=== PATIENT | female | born 1940 | race American Indian/Alaskan Native ===

== ENCOUNTER 2017-04-18 16:34 | Emergency (ER) | payer MEDICAID, OTHER ==
[2017-04-18 16:42] VITALS: BMI 24.5
--- NOTE | 2017-04-18 16:54 | ED PDOC ---
Arrival/HPI - General Chief Complaint: Chest Pain Time Seen by Provider: 04/18/17 16:49 Historian: Patient - History of Present Illness Narrative History of Present Illness (Text): 04/18/17 16:50 Zo Fritz is a 76 year old female who presents to the emergency department complaining of right sided chest, back, and neck pain since this morning. Patient notes that she has experienced a runny nose and sneezing for a few days. Patient denies any cough, dyspnea, fever, chills, trauma, traveler exposure, nausea, vomiting, diarrhea, diaphoresis, dizziness, or any other complaints at this time. Symptom Onset: Gradual Symptom Course: Unchanged Severity Level: Mild Context: Home Associated Symptoms (Text): 04/18/17 17:02 Patient daughter and granddaughter report right sided chest up her back and neck pain since this morning. She has had some sneezing and a runny nose for several days. No trauma. No cough. No dyspnea. No diaphoresis. No nausea or vomiting. No rash. She has never experienced this previously. Past Medical History - Provider Review Nursing Documentation Reviewed: Yes - Infectious Disease Hx of Infectious Diseases: None - Cardiac Hx Pacemaker: No - Pulmonary Hx Respiratory Disorders: No - Neurological Hx Paralysis: No - HEENT Hx Cataracts: Yes - Renal Hx Renal Disorder: No - Endocrine/Metabolic Hx Endocrine Disorders: No - Hematological/Oncological Hx Blood Transfusions: No Hx Blood Transfusion Reaction: No - Integumentary Hx Dermatological Disorder: No - Musculoskeletal/Rheumatological Hx Musculoskeletal Disorders: No - Gastrointestinal Hx Constipation: Yes - Genitourinary/Gynecological Hx Genitourinary Disorders: No - Psychiatric Hx Emotional Abuse: No Hx Physical Abuse: No Hx Substance Use: No - Surgical History Hx Joint Replacement: Yes (2012 right knee replacement) Other/Comment: tumor removed from ovary 1972 - Anesthesia Hx Anesthesia: Yes Hx Anesthesia Reactions: No Hx Malignant Hyperthermia: No - Suicidal Assessment Feels Threatened In Home Enviroment: No Family/Social History - Physician Review Nursing Documentation Reviewed: Yes Family/Social History: No Known Family HX Smoking Status: Never Smoked Hx Alcohol Use: No Hx Substance Use: No Hx Substance Use Treatment: No Allergies/Home Meds Allergies/Adverse Reactions: Allergies iodine Allergy (Severe, Verified 04/18/16 08:40) "I PASSED OUT" Home Medications: Home Meds Medication Instructions Recorded Confirmed Alprazolam 0.5 mg PO TID PRN 06/05/15 04/18/17 Aspirin/Dipyridamole [Aggrenox 1 ea PO BID 06/05/15 04/18/17 25-200 mg] Hydrochlorothiazide [HCTZ] 25 mg PO DAILY 06/05/15 04/18/17 Metoprolol Tartrate [Lopressor] 50 mg PO BID 06/05/15 04/18/17 Omeprazole 20 mg PO DAILY 06/05/15 04/18/17 Simvastatin 10 mg PO DAILY 06/05/15 04/18/17 Valsartan [Diovan] 160 mg PO BID 06/05/15 04/18/17 cloNIDine 0.3 mg/24 hr 1 patch TD SUN 06/05/15 04/18/17 [catapres-TTS3 0.3 mg/24 hr] Acetaminophen/Butalbital/Caf 1 tab PO TID PRN 04/18/16 04/18/17 [Fioricet] Review of Systems - Physician Review All systems were reviewed & negative as marked: Yes - Review of Systems Constitutional: absent: Fatigue, Fevers, Night Sweats Eyes: absent: Vision Changes ENT: Rhinorrhea. absent: Hearing Changes Respiratory: absent: SOB, Cough, Sputum, Wheezing Cardiovascular: Chest Pain. absent: Palpitations, Syncope Gastrointestinal: absent: Abdominal Pain, Nausea, Vomiting Genitourinary Female: absent: Dysuria Musculoskeletal: Back Pain, Neck Pain Skin: absent: Rash, Pruritis Neurological: absent: Headache, Dizziness, Focal Weakness, Gait Changes Endocrine: absent: Diaphoresis Hemo/Lymphatic: absent: Adenopathy Psychiatric: absent: Anxiety, Depression Physical Exam Vital Signs Reviewed: Yes Vital Signs Pulse Resp BP Pulse Ox 04/18/17 21:17 69 17 135/63 100 04/18/17 18:48 69 20 148/74 100 04/18/17 16:49 76 18 135/70 100 Blood Pressure: Normal Pulse: Regular Respiratory Rate: Normal Appearance: Positive for: Well-Appearing, Non-Toxic, Uncomfortable Pain Distress: Mild Mental Status: Positive for: Alert and Oriented X 3 - Systems Exam Head: Present: Atraumatic, Normocephalic Pupils: Present: PERRL Extroacular Muscles: Present: EOMI Conjunctiva: Present: Normal Mouth: Present: Moist Mucous Membranes Pharnyx: No: ERYTHEMA, EXUDATE, TONSILS ENLARGED Neck: Present: Normal Range of Motion. No: Meningeal Signs, MIDLINE TENDERNESS , Paraspinal Tenderness Respiratory/Chest: Present: Clear to Auscultation, Decreased Breath Sounds, Tender to Palpation (to right-sided chest). No: Respiratory Distress, Accessory Muscle Use, Wheezes, Rales, Retracting, Rhonchi, Tachypneic Cardiovascular: Present: Regular Rate and Rhythm, Normal S1, S2. No: Murmurs Abdomen: Present: Normal Bowel Sounds. No: Tenderness, Distention, Peritoneal Signs, Rebound, Guarding Back: Present: Normal Inspection. No: CVA Tenderness, Midline Tenderness, Paraspinal Tenderness Upper Extremity: Present: Normal Inspection. No: Cyanosis, Edema Lower Extremity: Present: Normal Inspection. No: Edema Neurological: Present: GCS=15, CN II-XII Intact, Speech Normal, Motor Func Grossly Intact Skin: Present: Warm, Dry, Normal Color. No: Rashes Psychiatric: Present: Alert, Oriented x 3, Normal Insight, Normal Concentration Medical Decision Making ED Course and Treatment: 04/18/17 16:56 Impression: 76 year old female who presents to the emergency department complaining of right sided chest, back, and neck pain since this morning. Plan: -- EKG -- Chest X-ray -- Labs -- Toradol -- Reassess and disposition Prior Visits: Notes and results from previous visits were reviewed. Patient was last seen in emergency department on 04/18/16 for accidentally had a sipping Clorox when taking her medication. Patient was discharged home. Progress Notes: 04/18/17 17:04 EKG shows normal sinus rhythm rate approximately 80 with Q waves inferiorly and poor R-wave progression and no acute ST or T-wave changes 04/18/17 18:55 Patient's dimer is elevated. A CTA has been ordered. She will be premedicated with Benadryl IV prior to IV contrast as she has an allergy to fish. 04/18/17 21:29 CT chest as read by the radiologist shows pulmonary nodules for which follow-up in 12 months was recommended. Follow-up with PMD. Follow-up in the ER as needed. No pulmonary embolus. 04/18/17 21:29 Patient's pain has improved. - Lab Interpretations Lab Results: 04/18/17 17:00 04/18/17 17:00 Lab Results 04/18/17 17:00: Sodium 138, Potassium 4.5, Chloride 102, Carbon Dioxide 24, Anion Gap 17, BUN 13, Creatinine 1.1, Est GFR ( Amer) 59, Est GFR (Non- Af Amer) 49, Random Glucose 81, Calcium 9.9, Total Bilirubin 0.3, AST 36, ALT 32 , Alkaline Phosphatase 137 H, Lactate Dehydrogenase 511, Total Creatine Kinase 470 H, CK-MB (CK-2) 0.4, CK-MB (CK-2) % Cancelled, Troponin I < 0.01, NT-Pro-B Natriuret Pep 207, Total Protein 8.2, Albumin 4.2, Globulin 4.1, Albumin/ Globulin Ratio 1.0 L 04/18/17 17:00: PT 11.7, INR 1.03, APTT 25.9, D-Dimer, Quantitative 380 H 04/18/17 17:00: WBC 5.5, RBC 3.90, Hgb 10.8 L, Hct 32.8 L, MCV 84.1, MCH 27.7, MCHC 32.9, RDW 14.3, Plt Count 171, MPV 9.5, Gran % 43.5 L, Lymph % (Auto) 43.8 H, [place] % (Auto) 8.5 H, Eos % (Auto) 3.8, Baso % (Auto) 0.4, Gran # 2.40, Lymph # 2.4, [place] # 0.5, Eos # 0.2, Baso # 0.02 I have reviewed the lab results: Yes - RAD Interpretation Radiology Orders: 04/18/17 16:50 CHEST PORTABLE [RAD] Stat 04/18/17 18:08 ANGIO CHEST PE PROTOCOL [CT] Stat Chest 1 view shows no infiltrate effusion or cardiomegaly Drapery Seamstress: ED Physician - Medication Orders Current Medication Orders: Discontinued Medications Diphenhydramine HCl (Benadryl) 50 mg IVP ONCE ONE Stop: 04/18/17 18:56 Last Admin: 04/18/17 19:13 Dose: 50 mg IVP Administration Document 04/18/17 19:13 [facility] (Rec: 04/18/17 19:13 [facility]-[id number]) Charges for Administration # of IVP Administrations 1 Ketorolac Tromethamine (Toradol) 15 mg IVP STAT STA Stop: 04/18/17 16:51 Last Admin: 04/18/17 17:09 Dose: 15 mg MAR Pain Assessment Document 04/18/17 17:09 [facility] (Rec: 04/18/17 17:09 [facility]-[id number]) Pain Reassessment Is this a pain reassessment? Yes IVP Administration Document 04/18/17 17:09 [facility] (Rec: 04/18/17 17:09 [id number] Charges for Administration # of IVP Administrations 1 Re-Assess: MAR Pain Assessment Document 04/18/17 18:09 [facility] (Rec: 04/18/17 18:44 [id number] Pain Reassessment Is this a pain reassessment? Yes Sleep Is patient sleeping during reassessment? No Presence of Pain Presence of Pain No - Scribe Statement The provider has reviewed the documentation as recorded by the Brody Woodard Provider Scribe Attestation: All medical record entries made by the Scribe were at my direction and personally dictated by me. I have reviewed the chart and agree that the record accurately reflects my personal performance of the history, physical exam, medical decision making, and the department course for this patient. I have also personally directed, reviewed, and agree with the discharge instructions and disposition. Disposition/Present on Arrival - Present on Arrival Any Indicators Present on Arrival: No History of DVT/PE: No History of Uncontrolled Diabetes: No Urinary Catheter: No History of Decub. Ulcer: No History Surgical Site Infection Following: None - Disposition Have Diagnosis and Disposition been Completed?: Yes Diagnosis: Anemia, Chest pain, Pleurisy Disposition: HOME/ ROUTINE Disposition Time: 21:30 Patient Plan: Discharge Condition: IMPROVED Discharge Instructions (ExitCare): Chest Pain (ED), Anemia (ED), Pleurisy (ED) Additional Instructions: Follow-up with PMD. follow-up in ER as needed. Prescriptions: Tramadol HCl [Ultram] 50 mg PO Q6 PRN #10 tab PRN Reason: Pain Referrals: Lola Singh MD [Primary Care Provider] - Follow up with primary Forms: [employer] (Divehi)
[2017-04-18 17:40] LABS: B-TYPE NATRIURETIC PEPTIDE 207 pg/mL (0-450); INR 1.03 (0.93-1.08); PARTIAL THROMBOPLASTIN TIME 25.9 Seconds (25.1-36.5); PROTHROMBIN TIME 11.7 SECONDS (9.4-12.5); TROPONIN I < 0.01 ng/mL
[2017-04-18 17:44] LABS: ALBUMIN 4.2 g/dL (3.0-4.8); ALT/SGPT 32 U/L (7-56); AST/SGOT 36 U/L (14-36); BASO # 0.02 K/mm3 (0.0-2.0); BASO % 0.4 % (0.0-3.0); BLOOD UREA NITROGEN 13 mg/dL (7-21); CALCIUM 9.9 mg/dL (8.4-10.5); EOS # 0.2 (0.0-0.7); EOS % 3.8 % (1.5-5.0); GFR AFRICAN-AMERICAN 59; GFR NON-AFRICAN AMERICAN 49; GRAN # 2.4 (1.4-6.5); GRAN % 43.5 % (50.0-68.0); HEMOGLOBIN 10.8 g/dL (12.0-16.0); LYMPH # 2.4 (1.2-3.4); LYMPH % 43.8 % (22.0-35.0); MEAN CELL VOLUME 84.1 fl (80.0-105.0); MEAN CORPUSCULAR HEMOGLOBIN 27.7 pg (25.0-35.0); MEAN CORPUSCULAR HGB CONC 32.9 g/dl (31.0-37.0); MEAN PLATELET VOLUME 9.5 fl (7.0-11.0); MONO # 0.5 (0.1-0.6); MONO % 8.5 % (1.0-6.0); RBC 3.9 10^6/uL (3.5-6.1); RED CELL DISTRIBUTION WIDTH 14.3 % (11.5-14.5); WHITE BLOOD COUNT 5.5 10^3/ul (4.5-11.0)
[2017-04-18 18:05] LABS: CK-MB 0.4 ng/mL (0.0-3.6)
[2017-04-18] MEDS ORDERED: Iohexol 350 MG/100 ML VIAL ONE (18:24)
[2017-04-18 18:49] VITALS: PULSE 69
[2017-04-18] MEDS ORDERED: DiphenhydrAMINE 50 mg/ml Inj IVP ONE (18:55)
--- NOTE | 2017-04-18 19:27 | CARD ---
APPROVED REPORT EKG Measurement Heart [id number] <Conclusion> Normal sinus rhythm Possible Left atrial enlargement Left axis deviation Left ventricular hypertrophy Prolonged QT Abnormal ECG
[2017-04-18 21:18] VITALS: BP 135/63; RESP 17
--- NOTE | 2017-04-18 21:20 | CT ---
EXAM: CT Angiography Chest With Intravenous Contrast EXAM DATE/TIME: 04/18/2017 6:08 PM CLINICAL HISTORY: 76 years old, female; Abnormal findings; Abnormal diagnostic tests; Elevated d-dimer; Additional info: Elevated dimer TECHNIQUE: Axial computed tomographic angiography images of the chest with intravenous contrast using pulmonary embolism protocol. All CT scans at this facility use one or more dose reduction techniques, viz.: automated exposure control; ma/kV adjustment per patient size (including targeted exams where dose is matched to indication; i.e. head); or iterative reconstruction technique. MIP reconstructed images were created and reviewed. Coronal and sagittal reformatted images were created and reviewed. CONTRAST: 100 mL of OMNI administered intravenously. COMPARISON: DX - CHEST PORTABLE 2017-04-18 18:10 FINDINGS: Artifacts: Motion artifact degrades image quality. Heart, aorta and Pulmonary arteries: Heart size is normal. There are coronary artery calcifications. Aorta is normal in caliber.There are vascular calcifications. There are no central pulmonary emboli. Motion and bolus timing limits evaluation of peripheral vessels. There are no large peripheral pulmonary emboli. Lungs and pleural spaces: Trachea and main bronchi are patent.There is no pneumothorax. There is no focal consolidation. There is a 5.7 mm right perihilar nodule, image 71 series 2. There is a 3.8 mm right lower lobe nodule, image 41 series 4 There is a 4.3 mm left upper lobe nodule, image 72 series 2. There is a 2.6 mm lingular nodule, image 141 series 2. There is a 4.2 mm pleural-based left upper lobe nodule, image 125 series 2 There is atelectasis and scarring at the lung bases. There are no effusions. Mediastinum: The esophagus is unremarkable. There are no pathologically enlarged mediastinal nodes. There are shotty hilar nodes. Thyroid: Thyroid is not optimally demonstrated. Bones/joints: Bony structures are osteopenic with degenerative change. Soft tissues: unremarkable Upper abdomen: There are no acute abnormalities in the visualized portion of the abdomen. There is a 7.3 mm low-attenuation right adrenal nodule IMPRESSION: Slightly limited by bolus timing and patient motion, no pulmonary embolus; atherosclerotic disease with coronary artery calcification; multiple small indeterminate pulmonary nodules Additional nonemergent findings as described above. For low-risk patients, no follow-up is necessary. For high-risk patients (smoking history or other known risk factors) an optional chest CT at 12 months could be performed.
[2017-04-18 21:45] VITALS: TEMP 98; O2SAT 98
--- NOTE | 2017-04-19 13:55 | RAD ---
HISTORY: cp COMPARISON: 04/18/2016 FINDINGS: LUNGS: No active pulmonary disease. PLEURA: No significant pleural effusion identified, no pneumothorax apparent. CARDIOVASCULAR: Normal. OSSEOUS STRUCTURES: No significant abnormalities. VISUALIZED UPPER ABDOMEN: Normal. OTHER FINDINGS: None. IMPRESSION: No active disease.
== END 2017-04-18 21:58 | disposition home or self-care (01) ==
LOC: ED 16:34
DX: D64.9 Anemia, unspecified (principal); R09.1 Pleurisy; R07.9 Chest pain, unspecified; Z96.651 Presence of right artificial knee joint
CPT/HCPCS: 71045; 71275; 80053; 82550; 82553; 83615; 83880; 84484; 85025; 85378; 85610; 85730; 93005; 96374; 96375; 99284; J1200; J1885; Q9967

== ENCOUNTER 2017-08-11 14:57 | Emergency (ER) | payer MEDICAID, OTHER ==
[2017-08-11 15:39] VITALS: TEMP 97.6; BMI 24.7
[2017-08-11] MEDS ORDERED: Oxycodone/Acetaminophen 2.5/325 mg Tab PO STA (15:39)
--- NOTE | 2017-08-11 15:43 | ED PDOC ---
Arrival/HPI - General Chief Complaint: Trauma Time Seen by Provider: 08/11/17 15:04 Historian: Patient - History of Present Illness Narrative History of Present Illness (Text): 08/11/17 15:47 A 77 year old female, whose past medical history includes hypertension, peripheral vascular disease, CVA, and TIA , presents to the emergency department complaining of right-side maxillary rib pain (to 3rd and 4th rib). Patient reports yesterday she fell out of bed after turning the wrong direction and hit her right ribs onto a tin trashcan. Patient denies any LOC, head trauma , other injuries, or any other complaints. Also, patient mentions she drove to ER alone. PMD: Dr. Lola Sinhg Past Medical History - Provider Review Nursing Documentation Reviewed: Yes - Infectious Disease Hx of Infectious Diseases: None - Cardiac Hx Cardiac Disorders: Yes Hx Hypertension: Yes Hx Peripheral Vascular Disease: Yes - Pulmonary Hx Respiratory Disorders: No - Neurological Hx Neurological Disorder: Yes (left sided weakness) HX Cerebrovascular Accident: Yes ( 2004 2006 2010 2011) Hx Transient Ischemic Attacks (TIA): Yes - HEENT Hx HEENT Disorder: Yes Hx Cataracts: Yes - Renal Hx Renal Disorder: No - Endocrine/Metabolic Hx Endocrine Disorders: No - Hematological/Oncological Hx Blood Disorders: Yes Hx Anemia: Yes Hx Blood Transfusions: Yes Hx Blood Transfusion Reaction: No - Integumentary Hx Dermatological Disorder: No - Musculoskeletal/Rheumatological Hx Musculoskeletal Disorders: Yes Hx Back Pain: Yes Hx Osteoarthritis: Yes - Gastrointestinal Hx Gastrointestinal Disorders: No - Genitourinary/Gynecological Hx Genitourinary Disorders: Yes (hx removal ovarian mass) Hx Hematuria: Yes Hx Urinary Tract Infection: Yes - Psychiatric Hx Psychophysiologic Disorder: Yes Hx Anxiety: Yes Hx Depression: No Hx Hallucinations: No Hx Substance Use: No - Surgical History Hx Joint Replacement: Yes (2012 right knee replacement) Other/Comment: 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 - Anesthesia Hx Anesthesia: Yes Hx Anesthesia Reactions: No Hx Malignant Hyperthermia: No - Suicidal Assessment Feels Threatened In Home Enviroment: No Family/Social History - Physician Review Nursing Documentation Reviewed: Yes Family/Social History: No Known Family HX Smoking Status: Never Smoked Hx Alcohol Use: No Hx Substance Use: No Hx Substance Use Treatment: No Allergies/Home Meds Allergies/Adverse Reactions: Allergies iodine Allergy (Severe, Verified 08/11/17 15:31) "I PASSED OUT" Home Medications: Home Meds Medication Instructions Recorded Confirmed Alprazolam 0.5 mg PO TID PRN 06/05/15 08/11/17 Aspirin/Dipyridamole [Aggrenox 1 ea PO BID 06/05/15 08/11/17 25-200 mg] Hydrochlorothiazide [HCTZ] 25 mg PO DAILY 06/05/15 08/11/17 Metoprolol Tartrate [Lopressor] 50 mg PO BID 06/05/15 08/11/17 Omeprazole 20 mg PO DAILY 06/05/15 08/11/17 Simvastatin 10 mg PO DAILY 06/05/15 08/11/17 Valsartan [Diovan] 160 mg PO BID 06/05/15 08/11/17 cloNIDine 0.3 mg/24 hr 1 patch TD SUN 06/05/15 08/11/17 [catapres-TTS3 0.3 mg/24 hr] Nitrofurantoin Macrocrystals 100 mg PO BID 05/06/17 08/11/17 [Macrobid] Review of Systems - Physician Review All systems were reviewed & negative as marked: Yes - Review of Systems Constitutional: absent: Other (no head trauma) Musculoskeletal: Other (right maxillary rib pain (3rd and 4th ribs)) Neurological: absent: Other (no LOC) Physical Exam Vital Signs Temp Pulse Resp BP Pulse Ox 08/11/17 15:32 74 17 129/68 100 08/11/17 15:31 97.6 F 72 20 129/68 100 Temperature: Afebrile Blood Pressure: Normal Pulse: Regular Respiratory Rate: Normal Appearance: Positive for: Well-Appearing, Non-Toxic, Comfortable Pain Distress: None Mental Status: Positive for: Alert and Oriented X 3 - Systems Exam Head: Present: Atraumatic, Normocephalic Pupils: Present: PERRL Extroacular Muscles: Present: EOMI Conjunctiva: Present: Normal Neck: Present: Normal Range of Motion Respiratory/Chest: Present: Clear to Auscultation, Good Air Exchange. No: Respiratory Distress, Accessory Muscle Use Cardiovascular: Present: Regular Rate and Rhythm, Normal S1, S2. No: Murmurs Abdomen: Present: Tenderness (tenderness to right-side ribs maxillary area (3rd and 4th ribs)) Back: Present: Normal Inspection Upper Extremity: Present: Normal Inspection. No: Cyanosis, Edema Lower Extremity: Present: Normal Inspection. No: Edema Neurological: Present: GCS=15, CN II-XII Intact, Speech Normal Skin: Present: Warm, Dry, Normal Color. No: Rashes Psychiatric: Present: Alert, Oriented x 3, Normal Insight, Normal Concentration Medical Decision Making ED Course and Treatment: 08/11/17 15:48 Impression: 77 year old female with right-side rib pain. Physical exam shows tenderness to right-side ribs maxillary region (3rd and 4th ribs); otherwise no other acute findings on examination. Plan: -- Chest CT -- Chest X-ray -- Tylenol -- Percocet -- Zofran -- Reassess and disposition Progress Notes: EKG: Ordered, reviewed, and independently interpreted the EKG. Rate : 66 BPM Rhythm : NSR Interpretation : LVH. Comparison : No previous EKG for comparison. 08/11/2017 16:[address] IMPRESSION: No rib fracture or gross lytic lesion seen. No pneumothorax in this patient with right-sided rib pain following a fall. Atherosclerotic vascular disease. Trace non-specific pulmonary inflammatory changes bronchiectasis as above. No suspect pulmonary nodules larger than 6 mm in size seen. No gross consolidation otherwise noted. No anuerysm no dissection. Dictator: Prudence Munoz MD - RAD Interpretation Radiology Orders: 08/11/17 15:40 CHEST W/O CONTRAST [CT] Stat CHEST PORTABLE [RAD] Stat - Medication Orders Current Medication Orders: Discontinued Medications Acetaminophen (Tylenol 325mg Tab) 650 mg PO STAT STA Stop: 08/11/17 15:40 Last Admin: 08/11/17 15:53 Dose: 650 mg Ondansetron HCl (Zofran Odt) 4 mg PO STAT STA Stop: 08/11/17 15:40 Last Admin: 08/11/17 15:53 Dose: 4 mg Oxycodone/Acetaminophen (Percocet 2.5/325 Mg Tab) 1 tab PO STAT STA Stop: 08/11/17 15:40 Last Admin: 08/11/17 15:53 Dose: 1 tab - Scribe Statement The provider has reviewed the documentation as recorded by the Andreaibpeña Flannery Provider Scribe Attestation: All medical record entries made by the Scribe were at my direction and personally dictated by me. I have reviewed the chart and agree that the record accurately reflects my personal performance of the history, physical exam, medical decision making, and the department course for this patient. I have also personally directed, reviewed, and agree with the discharge instructions and disposition. Disposition/Present on Arrival - Present on Arrival Any Indicators Present on Arrival: No History of DVT/PE: No History of Uncontrolled Diabetes: No Urinary Catheter: No History of Decub. Ulcer: No History Surgical Site Infection Following: None - Disposition Have Diagnosis and Disposition been Completed?: Yes Diagnosis: Bruised ribs Disposition: HOME/ ROUTINE Disposition Time: 16:59 Patient Plan: Discharge Condition: GOOD Discharge Instructions (ExitCare): Bruised Rib (DC) Additional Instructions: Mrs Fritz- You have a couple of bruised ribs. Please use the incentive spirometer so that you do not get pneumonia. The percocet is for pain but it will make you drowsy and upset your stomach. Do not drive if you take the percocet. Follow up with your doctor next week. Henry- Dr. Eliot Thompson Prescriptions: Ondansetron ODT [Zofran ODT] 4 mg PO TID #30 odt oxyCODONE/Acetaminophen [Percocet 5/325 mg Tab] 1 ea PO QID #20 tab Referrals: Lola Singh MD [Primary Care Provider] - Follow up with primary Forms: [employer] (Italian)
--- NOTE | 2017-08-11 16:52 | CT ---
PROCEDURE: CT Chest without contrast HISTORY: Fall, Righ Sided Upper Rib Pain Mid Axillary Line COMPARISON: The CT angio chest PE protocol study 04/18/2017 is noted. TECHNIQUE: Contiguous axial images were obtained through the chest without intravenous contrast enhancement. Sagittal and coronal reconstructions were performed. Radiation dose (DLP): 230 mGy-cm. This CT exam was performed using one or more of the following dose reduction techniques: Automated exposure control, adjustment of the mA and/or kV according to patient size, and/or use of iterative reconstruction technique. FINDINGS: LUNGS: No suspicious pulmonary nodules apparent on this exam-previously tiny bilateral pulmonary nodules were referenced -even with prior reported series 10 images with the were then reported - this is difficult to visualize. No pulmonary nodules greater than 6 mm in size are noted on this exam. Central pulmonary airways patent. Trace right posteromedial peripheral bronchiectatic changes incidentally noted. No pneumothorax seen MEDIASTINUM: Unremarkable thoracic aorta. No aneurysm. Atherosclerotic vascular calcifications present Normal sized heart. Main pulmonary artery unremarkable. No vascular congestion. No lymphadenopathy. PLEURA: No pleural fluid. No pneumothorax. BONES: No fracture. No destructive lesion. Thoracic spondylosis noted UPPER ABDOMEN: Grossly unremarkable. OTHER FINDINGS: None. IMPRESSION: No rib fracture or gross lytic lesion seen. No pneumothorax in this patient with right-sided rib pain following a fall. Atherosclerotic vascular disease. Trace nonspecific pulmonary inflammatory changes bronchiectasis as above. No suspect pulmonary nodules larger than 6 mm in size seen. No gross consolidation otherwise noted. No aneurysm no dissection
[2017-08-11 17:13] VITALS: BP 125/67; PULSE 69; RESP 18
--- NOTE | 2017-08-11 17:19 | RAD ---
HISTORY: Fall, Right Sided Upper Rib Pain Mid Axillary Line COMPARISON: 04/18/2017. FINDINGS: LUNGS: No active pulmonary disease. PLEURA: No significant pleural effusion identified, no pneumothorax apparent. CARDIOVASCULAR: No radiographic findings to suggest acute or significant cardiovascular disease. OSSEOUS STRUCTURES: No significant abnormalities. VISUALIZED UPPER ABDOMEN: Normal. OTHER FINDINGS: None. IMPRESSION: No active disease. No significant interval change compared to the prior examination(s).
[2017-08-11 17:39] VITALS: O2SAT 99
--- NOTE | 2017-08-11 21:43 | CARD ---
APPROVED REPORT EKG Measurement Heart [id number] <Conclusion> Normal sinus rhythm Moderate voltage criteria for LVH, may be normal variant Nonspecific ST and T wave abnormality Abnormal ECG
== END 2017-08-11 17:39 | disposition home or self-care (01) ==
LOC: ED 14:57
DX: S20.211A Contusion of right front wall of thorax, initial encounter (principal); W06.XXXA Fall from bed, initial encounter; Y92.003 Bedroom of unspecified non-institutional (private) residence as the place of occurrence of the external cause; I10 Essential (primary) hypertension